=== PATIENT | female | born 1995 | race Caucasian/White ===

== ENCOUNTER 2017-08-15 05:08 | Inpatient (IN) | payer MEDICAID ==
--- NOTE | 2017-08-15 08:21 | PCM.LDHP ---
L&D History of Present Illness - General Date of Service: 08/15/17 Admit Problem/Dx: Patient Status Order with Admit Dx/Problem 08/15/17 05:36 Patient Status [ADT] Routine Admission Diagnosis/Problem Admission Diagnosis/Problem and insulin-dependent diabetes mellitus 08/15/17 08:10 21yo EDC 09/13/2016 making her 35 6/7wks today, complicated GDMA2 on insulin. A+, RI, GBS unkwn. AROM at 0400 clear fluid Source of Information: Patient History Limitations: Reports: No Limitations - History of Present Illness Improves with: Reports: None Worsens with: Reports: None Associated Symptoms: Reports: N - Related Data Allergies/Adverse Reactions: Allergies Allergy/AdvReac Type Severity Reaction Status Date / Time No Known Allergies Allergy Verified 10/23/16 17:57 Home Medications: Home Meds Acetaminophen [Tylenol Extra Strength] 500 mg PO Q4H PRN #1 tab 12/27/13 [Rx] Acetaminophen/oxyCODONE [Percocet 325-5 MG] 1 - 2 tab PO Q4H #30 tablet [Rx] Folic Acid 1 tab PO DAILY 11/03/16 [History] PNV95/Ferrous Fumarate/FA [ Vitamins Tablet] 1 tab PO DAILY 11/03/16 [ History] Past Medical History - Past Health History Medical/Surgical History: Denies Medical/Surgical History HEENT History: Reports: None Cardiovascular History: Reports: None Respiratory History: Reports: None Gastrointestinal History: Reports: GERD Genitourinary History: Reports: None 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: Musculoskeletal History: Reports: None Neurological History: Reports: None Psychiatric History: Reports: None Endocrine/Metabolic History: Reports: Diabetes, Gestational, Obesity/BMI 30+ Hematologic History: Reports: None Immunologic History: Reports: None Oncologic (Cancer) History: Reports: None Dermatologic History: Reports: None - Infectious Disease History Infectious Disease History: Reports: Chicken Pox - Past Surgical History Head Surgeries/Procedures: Reports: None Social & Family History - Family History Family Medical History: Noncontributory - Tobacco Use Smoking Status *Q: Never Smoker Years of Tobacco use: 2 Second Hand Smoke Exposure: No - Alcohol Use Days Per Week of Alcohol Use: 0 - Recreational Drug Use Recreational Drug Use: No H&P Review of Systems - Review of Systems: Review Of Systems: See Below General: Reports: No Symptoms HEENT: Reports: No Symptoms Pulmonary: Reports: No Symptoms Cardiovascular: Reports: No Symptoms Gastrointestinal: Reports: No Symptoms Genitourinary: Reports: No Symptoms Musculoskeletal: Reports: No Symptoms Skin: Reports: No Symptoms Psychiatric: Reports: No Symptoms Neurological: Reports: No Symptoms Hematologic/Lymphatic: Reports: No Symptoms Immunologic: Reports: No Symptoms L&D Exam - Exam Exam: See Below - Vital Signs Weight: 102.512 kg - OB Specific Contraction Intensity: Moderate Movement: Active Heart Tones: Present Heart Rate (FHR) Variability: Moderate (6-25 bmp) Presentation: Vertex (confirmed via bedside handheld u/s) - Castillo Score Castillo Score Cervix Position: Posterior Castillo Score Consistency: Soft Castillo Score Effacement: 51-70% Castillo Score Dilation: 1-2 cm Castillo Score Infant's Station: -3 Castillo Score Total: 5 - Exam General: Alert, Oriented, Cooperative HEENT: Hearing Intact Lungs: Normal Respiratory Effort GI/Abdominal Exam: Soft, Non-Tender, No Organomegaly (gravid) Rectal Exam: Deferred Genitourinary: Normal bimanual exam, Cervical dilitation, Cervical fluid Back Exam: Full Range of Motion Extremities: Normal Range of Motion, Non-Tender, No Pedal Edema, Normal Capillary Refill Skin: Warm, Dry, Intact Neurological: Reflexes Equal Bilateral, Normal Speech, Normal Tone Psychiatric: Alert, Normal Affect, Normal Mood - Patient Data Lab Results Last 24 hrs: Laboratory Results - last 24 hr 08/15/17 Range/Units 05:25 Membrane Rupture POSITIVE - Problem List (1) Supervision of normal IUP (intrauterine ) in multigravida SNOMED Code(s): 190035096, 230496406 ICD Code: Z34.80 - ENCOUNTER FOR SUPRVSN OF NORMAL , UNSP TRIMESTER Status: Acute Priority: High Current Visit: Yes Qualifiers: Trimester: unspecified trimester Qualified Code(s): Z34.90 - Encounter for supervision of normal , unspecified, unspecified trimester (2) Gestational diabetes mellitus (GDM) affecting SNOMED Code(s): 63014291314200 ICD Code: O24.419 - GESTATIONAL DIABETES MELLITUS IN , UNSP CONTROL Status: Acute Priority: High Current Visit: Yes Problem List Initiated/Reviewed/Updated: Yes Orders Last 24hrs: Active Orders 24 hr Category Date Time Status Patient Status [ADT] Routine ADT 08/15/17 05:36 Active Non Stress Test [RC] PER UNIT ROUTINE Care 08/15/17 05:36 Active Up ad [place] [RC] ASDIRECTED Care 08/15/17 05:36 Active Vaginal Exam [RC] Click to Edit Care 08/15/17 05:36 Active Vital Signs [RC] PER UNIT ROUTINE Care 08/15/17 05:36 Active Resuscitation Status Routine Resus Stat 08/15/17 05:36 Ordered Assessment/Plan Comment:: Labor A: 21yo EDC 09/13/2016 making her 35 6/7wks today, complicated GDMA2 on insulin. A+, RI, GBS unkwn. AROM at 0400 clear fluid P: admit to L&D, antibiotics for GBS unkwn, check BG q4h and if over 140 use sliding scale, pitocin per protocol, anticipate . Dr Villagomez updated on pt status
[2017-08-15] MEDS ORDERED: Methylergonovine 0.2 MG/1 ML Amp IM PRN (08:32)
[2017-08-15] MEDS ORDERED: Butorphanol 1 MG/ML SDV IVPUSH PRN (08:32)
[2017-08-15] MEDS ORDERED: Terbutaline 1 MG/ML SDV SUBCUT PRN (08:32)
[2017-08-15] MEDS ORDERED: Misoprostol 200 MCG Tab PO PRN (08:32)
[2017-08-15] MEDS ORDERED: Water For Irrigation,Sterile 1,000 ML Container IRR PRN (08:32)
[2017-08-15] MEDS ORDERED: Sodium Chloride 0.9% 10 ML Syringe FLUSH PRN (08:32)
[2017-08-15] MEDS ORDERED: Sodium Chloride 0.9% 2.5 ML Syringe FLUSH PRN (08:32)
[2017-08-15] MEDS ORDERED: Carboprost Tromethamine 250 MCG/1 ML Amp IM PRN (08:32)
[2017-08-15] MEDS ORDERED: Lidocaine 1% 50 ML MDV INJECT PRN (08:32)
[2017-08-15] MEDS ORDERED: Oxytocin/0.9 % Sodium Chloride 30 UNIT/500 ML BAG IV SCH ×2 (08:45)
[2017-08-15] MEDS ORDERED: Ampicillin 2 GM in Sodium Chloride 0.9% 100 ML IV ONE (09:00)
[2017-08-15] MEDS: Nalbuphine 10 MG/1 ML Vial IVPUSH PRN ×2 (09:01→11:28)
[2017-08-15] MEDS: Lactated Ringers 1,000 ML IV SCH ×3 (09:01→12:25)
[2017-08-15] MEDS ORDERED: Ropivacaine HCl/PF 100 ML ONE (11:46)
[2017-08-15] MEDS ORDERED: fentaNYL 100 MCG/2 ML SDV ONE (11:46)
[2017-08-15] MEDS ORDERED: Ampicillin 1 GM in Sodium Chloride 0.9% 50 ML IV SCH (13:00)
[2017-08-15] MEDS ORDERED: Ibuprofen 400 MG Tab PO PRN (14:31)
[2017-08-15] MEDS ORDERED: Acetaminophen 500 MG Tab PO PRN (14:31)
[2017-08-15] MEDS ORDERED: Benzocaine/Menthol 20%-0.5% Spray 78 GM Cannister TOP PRN (14:31)
[2017-08-15] MEDS ORDERED: Witch Hazel Medicated Pads 40/Jar TOP PRN (14:31)
[2017-08-15] MEDS ORDERED: Lanolin 100% Cream 7 GM Tube TOP PRN (14:31)
[2017-08-15] MEDS ORDERED: Bisacodyl 10 MG Supp RECTAL PRN (14:31)
--- NOTE | 2017-08-15 14:41 | PCM.PREANE ---
Preanesthetic Assessment - Procedure Proposed Procedure: Labor epidural - Anesthesia/Transfusion/Family Hx Anesthesia History: No Prior Anesthesia Family History of Anesthesia Reaction: No Transfusion History: No Prior Transfusion(s) Intubation History: Unknown Additional History: DM with insulin admin q PM; - Review of Systems General: No Symptoms, Other (labor) Pulmonary: No Symptoms Cardiovascular: No Symptoms Gastrointestinal: Other (GERD) Neurological: Other (active labor) - Physical Assessment Height: 5 ft 1 in Weight: 226 lb ASA Class: 3 Mental Status: Alert & Oriented x3 Airway Class: Mallampati = 1 Dentition: Reports: Normal Dentition Thyro-Mental Finger Breadths: 3 Mouth Opening Finger Breadths: 3 ROM/Head Extension: Full Lungs: Clear to Auscultation, Normal Respiratory Effort Cardiovascular: Regular Rate, Regular Rhythm, No Murmurs - Lab Values: Laboratory Last Values WBC 9.82 K/uL (4.0-11.0) 08/15/17 09:13 RBC 4.19 M/uL (4.30-5.90) L 08/15/17 09:13 Hgb 11.5 g/dL (12.0-16.0) L 08/15/17 09:13 Hct 34.3 % (36.0-46.0) L 08/15/17 09:13 MCV 81.9 fL (80.0-98.0) 08/15/17 09:13 MCH 27.4 pg (27.0-32.0) 08/15/17 09:13 MCHC 33.5 g/dL (31.0-37.0) 08/15/17 09:13 RDW Std Deviation 39.8 fl (28.0-62.0) 08/15/17 09:13 RDW Coeff of Robel 13 % (11.0-15.0) 08/15/17 09:13 Plt Count 256 K/uL (150-400) 08/15/17 09:13 MPV 11.70 fL (7.40-12.00) 08/15/17 09:13 Nucleated RBC % 0.0 /100WBC 08/15/17 09:13 Nucleated RBCs # 0 K/uL 08/15/17 09:13 Membrane Rupture POSITIVE 08/15/17 05:25 Blood Type A POSITIVE 08/15/17 09:13 Antibody Screen NEGATIVE 08/15/17 09:13 - Allergies Allergies/Adverse Reactions: Allergies Allergy/AdvReac Type Severity Reaction Status Date / Time No Known Allergies Allergy Verified 10/23/16 17:57 - Blood Blood Available: No Product(s) Available: None - Anesthesia Plan Pre-Op Medication Ordered: Other (nubain at 11:30) - Acknowledgements Anesthesia Type Planned: Epidural Pt an Appropriate Candidate for the Planned Anesthesia: Yes Alternatives and Risks of Anesthesia Discussed w Pt/Guardian: Yes Pt/Guardian Understands and Agrees with Anesthesia Plan: Yes PreAnesthesia Questionnaire - Past Health History Medical/Surgical History: Denies Medical/Surgical History HEENT History: Reports: None Cardiovascular History: Reports: None Respiratory History: Reports: None Gastrointestinal History: Reports: GERD Genitourinary History: Reports: None 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: Musculoskeletal History: Reports: None Neurological History: Reports: None Psychiatric History: Reports: None Endocrine/Metabolic History: Reports: Diabetes, Gestational, Obesity/BMI 30+ Hematologic History: Reports: None Immunologic History: Reports: None Oncologic (Cancer) History: Reports: None Dermatologic History: Reports: None - Infectious Disease History Infectious Disease History: Reports: Chicken Pox - Past Surgical History Head Surgeries/Procedures: Reports: None - SUBSTANCE USE Smoking Status *Q: Never Smoker Second Hand Smoke Exposure: No Days Per Week of Alcohol Use: 0 Recreational Drug Use History: No - HOME MEDS Home Medications: Home Meds Acetaminophen [Tylenol Extra Strength] 500 mg PO Q4H PRN #1 tab 12/27/13 [Rx] Acetaminophen/oxyCODONE [Percocet 325-5 MG] 1 - 2 tab PO Q4H #30 tablet [Rx] Folic Acid 1 tab PO DAILY 11/03/16 [History] PNV95/Ferrous Fumarate/FA [ Vitamins Tablet] 1 tab PO DAILY 11/03/16 [ History] - CURRENT (IN HOUSE) MEDS Current Meds: Current Medications Acetaminophen (Tylenol Extra Strength) 500 mg PO Q4H PRN PRN Reason: Pain Acetaminophen (Tylenol Extra Strength) 1,000 mg PO Q4H PRN PRN Reason: Pain Benzocaine/Menthol (Dermoplast Pain Relief 20%-0.5% [place]) 78 gm TOP ASDIRECTED PRN PRN Reason: Perineal Comfort Measure Bisacodyl (Dulcolax) 10 mg RECTAL .ONCE PRN PRN Reason: Constipation Docusate Sodium (Colace) 100 mg PO BID PRN PRN Reason: Constipation Emollient Ointment (Lansinoh Hpa) 0 gm TOP ASDIRECTED PRN PRN Reason: Sore Nipples Ibuprofen (Motrin) 400 mg PO Q4H PRN PRN Reason: Pain Ibuprofen (Motrin) 800 mg PO Q6H PRN PRN Reason: Pain Oxycodone HCl (Oxycodone) 5 mg PO Q2H PRN PRN Reason: Pain Witch Dilia (Tucks) 1 pad TOP ASDIRECTED PRN PRN Reason: comfort care Discontinued Medications Butorphanol Tartrate (Stadol) 1 mg IVPUSH ASDIRECTED PRN PRN Reason: Pain Carboprost Tromethamine (Hemabate Ds) 250 mcg IM ASDIRECTED PRN PRN Reason: Post Hemorrhage Fentanyl (Sublimaze) Confirm Administered Dose 100 mcg .ROUTE .STK-MED ONE Stop: 08/15/17 11:47 Lactated Ringer's (Ringers, Lactated) 1,000 mls @ 150 mls/hr IV ASDIRECTED [facility] Last Admin: 08/15/17 12:25 Dose: 150 mls/hr Oxytocin/Sodium Chloride (Oxytocin 30 Unit/500 Ml-Ns) 30 unit in 500 mls @ 999 mls/hr IV ASDIRECTED SRAVANTHI Last Admin: 08/15/17 14:28 Dose: 150 mls/hr Oxytocin/Sodium Chloride (Oxytocin 30 Unit/500 Ml-Ns) 30 unit in 500 mls @ 2 mls/hr IV TITRATE SRAVANTHI; 2 MUNITS/MIN PRN Reason: Protocol Last Titration: 08/15/17 10:20 Dose: 8 munits/min, 8 mls/hr Ampicillin Sodium 1 gm/ Sodium (Chloride) 50 mls @ 100 mls/hr IV Q4H SRAVANTHI Ampicillin Sodium 2 gm/ Sodium (Chloride) 100 mls @ 200 mls/hr IV ONETIME ONE Stop: 08/15/17 09:29 Last Admin: 08/15/17 09:30 Dose: 200 mls/hr Ropivacaine (Naropin 0.2%) Confirm Administered Dose 100 mls @ as directed .ROUTE .STK-MED ONE Stop: 12/06/17 11:47 Lidocaine HCl (Xylocaine 1%) 50 ml INJECT .ONCE PRN PRN Reason: Laceration repair Last Admin: 08/15/17 14:09 Dose: 50 ml Methylergonovine Maleate (Methergine) 0.2 mg IM ASDIRECTED PRN PRN Reason: Post Hemorrhage Last Admin: 08/15/17 14:05 Dose: 0.2 mg Misoprostol (Cytotec) 200 mcg PO .ONCE PRN PRN Reason: Post Hemorrhage Nalbuphine HCl (Nubain) 10 mg IVPUSH ASDIRECTED PRN PRN Reason: Pain (severe 7-10) Last Admin: 08/15/17 11:28 Dose: 10 mg Sodium Chloride (Saline Flush) 10 ml FLUSH ASDIRECTED PRN PRN Reason: Keep Vein Open Sodium Chloride (Saline Flush) 2.5 ml FLUSH ASDIRECTED PRN PRN Reason: Keep Vein Open Sterile Water (Sterile Water For Irrigation) 1,000 ml IRR ASDIRECTED PRN PRN Reason: delivery Terbutaline Sulfate (Brethine) 0.25 mg SUBCUT ASDIRECTED PRN PRN Reason: Tacysystole
[2017-08-15] MEDS: Docusate Sodium 100 MG Cap PO PRN (19:34)
[2017-08-15] MEDS: Acetaminophen 500 MG Tab PO PRN (19:34)
[2017-08-15] MEDS: oxyCODONE 5 MG Tab PO PRN (19:35)
[2017-08-16] MEDS: Ibuprofen 800 MG Tab PO PRN ×3 (01:22→17:03)
[2017-08-16] MEDS: oxyCODONE 5 MG Tab PO PRN ×4 (04:44→20:37)
[2017-08-16] MEDS: Acetaminophen 500 MG Tab PO PRN (04:45)
--- NOTE | 2017-08-16 07:37 | PCM.DCSUM1 ---
Discharge Summary - Hospital Course Free Text/Narrative:: Discharge home with son. Follow up in 6 weeks for post or sooner if needed. - Discharge Data Discharge Date: 08/16/17 Discharge Disposition: Home, Self-Care 01 Condition: Good - Discharge Diagnosis/Problem(s) (1) Supervision of normal IUP (intrauterine ) in multigravida SNOMED Code(s): 329173126, [id number] ICD Code: Z34.80 - ENCOUNTER FOR SUPRVSN OF NORMAL , UNSP TRIMESTER Status: Acute Priority: High Current Visit: Yes Qualifiers: Trimester: unspecified trimester Qualified Code(s): Z34.90 - Encounter for supervision of normal , unspecified, unspecified trimester (2) Gestational diabetes mellitus (GDM) affecting SNOMED Code(s): 60062568039687 ICD Code: O24.419 - GESTATIONAL DIABETES MELLITUS IN , UNSP CONTROL Status: Acute Priority: High Current Visit: Yes (3) (spontaneous vaginal delivery) SNOMED Code(s): 36616377 ICD Code: O80 - ENCOUNTER FOR FULL-TERM UNCOMPLICATED DELIVERY Status: Acute Priority: High Current Visit: Yes - Patient Instructions Diet: Usual Diet as Tolerated Activity: As Tolerated, Rest and Relax Today Driving: May Drive Today Showering/Bathing: May Shower Notify Provider of: Fever, Increased Pain, Swelling and Redness, Nausea and/or Vomiting Other/Special Instructions: Discharge home with son. Follow up in 6 weeks for post or sooner if needed. Come to lab for 2 hour fasting glucose test prior to 6 wk visit. - Discharge Plan Home Medications: Home Meds Acetaminophen [Tylenol Extra Strength] 500 mg PO Q4H PRN #1 tab 12/27/13 [Rx] Acetaminophen/oxyCODONE [Percocet 325-5 MG] 1 - 2 tab PO Q4H #30 tablet [Rx] Folic Acid 1 tab PO DAILY 11/03/16 [History] PNV95/Ferrous Fumarate/FA [ Vitamins Tablet] 1 tab PO DAILY 11/03/16 [ History] Referrals: [facility] [Outside] Hayden Villagomez MD [Physician] - 09/26/17 10:45 am - General Info Date of Service: 08/16/17 Admission Dx/Problem (Free Text: Patient Status Order with Admit Dx/Problem 08/15/17 05:36 Patient Status [ADT] Routine Admission Diagnosis/Problem Admission Diagnosis/Problem and insulin-dependent diabetes mellitus 08/15/17 08:10 21yo EDC 09/13/2016 making her 35 6/7wks today, complicated GDMA2 on insulin. A+, RI, GBS unkwn. AROM at 0400 clear fluid Functional Status: Reports: Pain Controlled, Tolerating Diet, Ambulating, Urinating - Review of Systems General: Reports: No Symptoms HEENT: Reports: No Symptoms Pulmonary: Reports: No Symptoms Cardiovascular: Reports: No Symptoms Gastrointestinal: Reports: No Symptoms Genitourinary: Reports: No Symptoms Musculoskeletal: Reports: No Symptoms Skin: Reports: No Symptoms Neurological: Reports: No Symptoms Psychiatric: Reports: No Symptoms - Patient Data Vitals - Most Recent: Last Vital Signs Temp 36.5 C 08/16/17 04:00 Pulse 68 08/16/17 04:00 Resp 17 08/16/17 04:00 BP 99/61 08/16/17 04:00 Pulse Ox 98 08/16/17 04:00 Weight - Most Recent: 102.512 kg Lab Results - Last 24 hrs: Laboratory Results - last 24 hr 08/15/17 08/15/17 08/16/17 Range/Units 09:13 09:13 04:44 WBC 9.82 (4.0-11.0) K/uL RBC 4.19 L (4.30-5.90) M/uL Hgb 11.5 L 10.7 L (12.0-16.0) g/dL Hct 34.3 L 32.1 L (36.0-46.0) % MCV 81.9 (80.0-98.0) fL MCH 27.4 (27.0-32.0) pg MCHC 33.5 (31.0-37.0) g/dL RDW Std Deviation 39.8 (28.0-62.0) fl RDW Coeff of Robel 13 (11.0-15.0) % Plt Count 256 (150-400) K/uL MPV 11.70 (7.40-12.00) fL Nucleated RBC % 0.0 /100WBC Nucleated RBCs # 0 K/uL Blood Type A POSITIVE Antibody Screen NEGATIVE Med Orders - Current: Current Medications Acetaminophen (Tylenol Extra Strength) 500 mg PO Q4H PRN PRN Reason: Pain Last Admin: 08/16/17 04:45 Dose: 500 mg Acetaminophen (Tylenol Extra Strength) 1,000 mg PO Q4H PRN PRN Reason: Pain Benzocaine/Menthol (Dermoplast Pain Relief 20%-0.5% [place]) 78 gm TOP ASDIRECTED PRN PRN Reason: Perineal Comfort Measure Last Admin: 08/15/17 17:00 Dose: 1 spray Bisacodyl (Dulcolax) 10 mg RECTAL .ONCE PRN PRN Reason: Constipation Docusate Sodium (Colace) 100 mg PO BID PRN PRN Reason: Constipation Last Admin: 08/15/17 19:34 Dose: 100 mg Emollient Ointment (Lansinoh Hpa) 0 gm TOP ASDIRECTED PRN PRN Reason: Sore Nipples Ibuprofen (Motrin) 400 mg PO Q4H PRN PRN Reason: Pain Ibuprofen (Motrin) 800 mg PO Q6H PRN PRN Reason: Pain Last Admin: 08/16/17 01:22 Dose: 800 mg Oxycodone HCl (Oxycodone) 5 mg PO Q2H PRN PRN Reason: Pain Last Admin: 08/16/17 04:44 Dose: 5 mg Witch Dilia (Tucks) 1 pad TOP ASDIRECTED PRN PRN Reason: comfort care Last Admin: 08/15/17 17:00 Dose: 1 pad Discontinued Medications Butorphanol Tartrate (Stadol) 1 mg IVPUSH ASDIRECTED PRN PRN Reason: Pain Carboprost Tromethamine (Hemabate Ds) 250 mcg IM ASDIRECTED PRN PRN Reason: Post Hemorrhage Fentanyl (Sublimaze) Confirm Administered Dose 100 mcg .ROUTE .STK-MED ONE Stop: 08/15/17 11:47 Lactated Ringer's (Ringers, Lactated) 1,000 mls @ 150 mls/hr IV ASDIRECTED SRAVANTHI Last Admin: 08/15/17 12:25 Dose: 150 mls/hr Oxytocin/Sodium Chloride (Oxytocin 30 Unit/500 Ml-Ns) 30 unit in 500 mls @ 999 mls/hr IV ASDIRECTED SRAVANTHI Last Admin: 08/15/17 14:28 Dose: 150 mls/hr Oxytocin/Sodium Chloride (Oxytocin 30 Unit/500 Ml-Ns) 30 unit in 500 mls @ 2 mls/hr IV TITRATE SRAVANTHI; 2 MUNITS/MIN PRN Reason: Protocol Last Titration: 08/15/17 10:20 Dose: 8 munits/min, 8 mls/hr Ampicillin Sodium 1 gm/ Sodium (Chloride) 50 mls @ 100 mls/hr IV Q4H SRAVANTHI Ampicillin Sodium 2 gm/ Sodium (Chloride) 100 mls @ 200 mls/hr IV ONETIME ONE Stop: 08/15/17 09:29 Last Admin: 08/15/17 09:30 Dose: 200 mls/hr Ropivacaine (Naropin 0.2%) Confirm Administered Dose 100 mls @ as directed .ROUTE .STK-MED ONE Stop: 08/15/17 11:47 Lidocaine HCl (Xylocaine 1%) 50 ml INJECT .ONCE PRN PRN Reason: Laceration repair Last Admin: 08/15/17 14:09 Dose: 50 ml Methylergonovine Maleate (Methergine) 0.2 mg IM ASDIRECTED PRN PRN Reason: Post Hemorrhage Last Admin: 08/15/17 14:05 Dose: 0.2 mg Misoprostol (Cytotec) 200 mcg PO .ONCE PRN PRN Reason: Post Hemorrhage Nalbuphine HCl (Nubain) 10 mg IVPUSH ASDIRECTED PRN PRN Reason: Pain (severe 7-10) Last Admin: 08/15/17 11:28 Dose: 10 mg Sodium Chloride (Saline Flush) 10 ml FLUSH ASDIRECTED PRN PRN Reason: Keep Vein Open Sodium Chloride (Saline Flush) 2.5 ml FLUSH ASDIRECTED PRN PRN Reason: Keep Vein Open Sterile Water (Sterile Water For Irrigation) 1,000 ml IRR ASDIRECTED PRN PRN Reason: delivery Terbutaline Sulfate (Brethine) 0.25 mg SUBCUT ASDIRECTED PRN PRN Reason: Tacysystole - Exam General: Reports: Alert, Oriented, Cooperative, No Acute Distress Lungs: Reports: Normal Respiratory Effort GI/Abdominal Exam: Soft, Non-Tender (Female) Exam: Vaginal Bleeding Rectal (Female) Exam: Deferred Back Exam: Reports: Full Range of Motion Extremities: Normal Range of Motion, Non-Tender, No Pedal Edema, Normal Capillary Refill Skin: Reports: Warm, Dry, Intact Wound/Incisions: Reports: Healing Well Neurological: Reports: No New Focal Deficit, Normal Speech, Normal Tone Psy/Mental Status: Reports: Alert, Normal Affect, Normal Mood *Q Meaningful Use (DIS) - VTE *Q VTE Criteria *Q: - Stroke *Q Stroke Criteria *Q: - AMI *Q AMI Criteria *Q:
[2017-08-16] MEDS: Docusate Sodium 100 MG Cap PO PRN (08:17)
--- NOTE | 2017-08-16 14:47 | PCM48HPAN ---
Post Anesthesia Note - EVALUATION WITHIN 48HRS OF ANESTHETIC Vital Signs in Normal Range: Yes Patient Participated in Evaluation: Yes Respiratory Function Stable: Yes Airway Patent: Yes Cardiovascular Function Stable: Yes Hydration Status Stable: Yes Pain Control Satisfactory: Yes Nausea and Vomiting Control Satisfactory: Yes Mental Status Recovered: Yes - COMMENTS/OBSERVATIONS Free Text/Narrative:: Catheter removed intact per RN.
--- NOTE | 2017-08-16 16:01 | OR ---
SURGEON: Hayden Villagomez MD DATE OF PROCEDURE: 08/15/2017 DELIVERY NOTE: Ms. Prather is a 21-year-old patient. She is a para 1-0-0-1. She started care late in our clinic. She is an insulin-dependent diabetic and in most of her , her diabetes was out of control. She is 36 weeks. She presented today to Labor and Delivery with gross rupture of the membranes. She was vertex presentation, and the patient after counseling, was admitted and she was started on Pitocin augmentation. She had an epidural anesthesia for labor analgesia. However, I saw the patient with the chief business development officer today early in the morning and in my assessment, the fetus is in excess of 9 pounds, and I was thinking that there may be a possibility of shoulder dystocia on this patient. However, the patient progressed completely to complete and started pushing and when Fatemeh Parekh went to do the delivery, I went to Labor and Delivery to be available just in case there was a shoulder dystocia with the patient. The head was delivered and Fatemeh had difficulty in delivering the shoulders. I joined the delivery team and assessed the finding. I went ahead and did a second-degree episiotomy to make room for the shoulders, and with sweeping anteriorly above the end of the symphysis pubis and gentle pulling on the head, and the patient in exaggerated Jena position, I was able to deliver the fetus and then we clamped the cord and we started resuscitation. The fetus was grasped and cried immediately. heart rate was above 100, and Dr. Whitman, the grass cutter, was called, and by the time I left the delivery room, the fetus was crying vigorously and there does not seem to be any problem. However, my preliminary assessment of the fetus before Dr. Whitman got there, is that there may be a possibility of fracture of the right clavicle, but that is to be assessed later and to be evaluated by the grass cutter. The placenta was delivered spontaneous, complete, and intact. Estimated blood loss was 350 mL. heart rate was category 1 through the entire process of labor. KURTIS / ENE /[id number]
[2017-08-16 21:28] VITALS: BP 108/67
== END 2017-08-16 21:12 | disposition home or self-care (01) | DRG 775 ==
LOC: MW.OBCHECK 05:08 → MW.OB 05:10 → MW.OBCHECK 09:00 → OBSVTOIN 13:55 → MW.OB 17:38
PROVIDERS: ADMIT Obstetrics & Gynecology; ATTEND Obstetrics & Gynecology
PROC: 10E0XZZ Delivery of Products of Conception, External Approach (ICD-10-PCS; principal; 2017-08-15)
PROC: 0KQM0ZZ Repair Perineum Muscle, Open Approach (ICD-10-PCS; 2017-08-15)
PROC: 10E0XZZ Delivery of Products of Conception, External Approach (ICD-10-PCS; 2017-08-15)
PROC: 0W8NXZZ Division of Female Perineum, External Approach (ICD-10-PCS; 2017-08-15)
DX: O24.424 Gestational diabetes mellitus in childbirth, insulin controlled (principal); O42.013 Preterm premature rupture of membranes, onset of labor within 24 hours of rupture, third trimester; O70.1 Second degree perineal laceration during delivery; Z3A.36 36 weeks gestation of pregnancy; Z37.0 Single live birth
CPT/HCPCS: 36415; 51702; 59025; 59409; 84112; 85014; 85018; 85027; 86850; 86900; 86901; A9270-GY; J0290; J2210; J2300; J2590; J7030; J7120

== ENCOUNTER 2018-01-31 12:58 | Emergency (ER) | payer SELFPAY ==
--- NOTE | 2018-01-31 13:45 | EDM.PDOC ---
ED HPI GENERAL MEDICAL PROBLEM - General Stated Complaint: CRAMPING AND SPOTTING WITH 3 MONTHS Time Seen by Provider: 01/31/18 13:05 Source of Information: Reports: Patient History Limitations: Reports: No Limitations - History of Present Illness INITIAL COMMENTS - FREE TEXT/NARRATIVE: HISTORY AND PHYSICAL: History of present illness: Patient is here to the ED with c/o low abdominal cramping. Upon assessment/ examination she is breast feeding. States she saw her primary care provider at 1030 this morning, to confirm . She had a blood draw, confirming she was . States she was concerned that they did "not do an ultrasound or tell me how far along I am". When she went home, she voided and as she wiped, she noted a "spec of blood". She has some abdominal cramping since that time. Denies any current bleeding since her wiping in the bathroom episode. States her last menstrual period was in October 2017. Believes she is 3 months . 4, Para 2, with Ectopic 1. History of gestational diabetes in which she was insulin-dependent Review of systems: As per history of present illness and below otherwise all systems reviewed and negative. Past medical history: As per history of present illness and as reviewed below otherwise noncontributory. Surgical history: As per history of present illness and as reviewed below otherwise noncontributory. Social history: No reported history of drug or alcohol abuse. Family history: As per history of present illness and as reviewed below otherwise noncontributory. Physical exam: General: Well-developed and well-nourished 22-year-old female. Alert and oriented. Nontoxic appearing and in no acute distress. HEENT: Atraumatic, normocephalic, pupils equal and reactive bilaterally, negative for conjunctival pallor or scleral icterus, mucous membranes moist, throat clear, neck supple, nontender, trachea midline. No drooling or trismus noted. No meningeal signs Lungs: Clear to auscultation, breath sounds equal bilaterally, chest nontender. Heart: S1S2, regular rate and rhythm without overt murmur Abdomen: Soft, nondistended, nontender. Negative for masses or hepatosplenomegaly. Negative for costovertebral tenderness. Pelvis: Stable nontender. Genitourinary: Deferred. Rectal: Deferred. Skin: Intact, warm, dry. No lesions or rashes noted. Extremities: Atraumatic, negative for cords or calf pain. Neurovascular unremarkable. Neuro: Awake, alert, oriented. Cranial nerves II through XII unremarkable. Cerebellum unremarkable. Motor and sensory unremarkable throughout. Exam nonfocal. Notes: Patient had a vaginal delivery by Dr Villagomez on 08/15/2017 (she is 5 months post ). Previous labs show blood type of A+ This morning the patient was seen by SRINIVASAN Padilla to confirm . Qualitative HCG was POSITIVE. Patient has an appointment with Dr Trivedi at [facility]. Dr Love, OB client solutions specialist, was notified of this patient. We discussed her care, she recommends getting an OB transvaginal US and repeat quantitative HCG in 3 days. Today's quant HCG was 2262 (puts her around 3-4 weeks). After the OB ultrasound was obtained the patient is asking to be released to home and called with the results as her needs to get to work soon. The ultrasound report has not returned yet. She will stay and wait for the results. OB ultrasound shows a focal area of thickening in the endometrium containing a small cystic space measuring 2 5 mm. Unable to identify a gestational sac. Ectopic cannot be excluded. They do request that a follow-up ultrasound and beta hCG be repeated this information was shared with the patient. Dr Love, OB client solutions specialist, was notified of this patient's results. She states she is comfortable continuing with the repeat quantitative hCG. She does not need the appointment expedited. This was shared with the patient. She denies any further questions or concerns. Will be discharged to home. Diagnostics: CBC, CMP, UA, Quantitative HCG Therapeutics: [] Impression: Threatened in First Trimester Plan: 1. Please have your quantitative HCG re-drawn on 02/03/2018 in outpatient lab 2. Pelvic rest (no sex, tampons, etc...) until you are cleared by your OB doctor. 3. Keep your OB appointment with Dr Trivedi for next week, follow up sooner if needed. Return to the ED as needed as discussed. Definitive disposition and diagnosis as appropriate pending reevaluation and review of above. 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: Musculoskeletal History: Reports: None Neurological History: Reports: None Psychiatric History: Reports: None Endocrine/Metabolic History: Reports: Diabetes, Gestational, Obesity/BMI 30+ Hematologic History: Reports: None Immunologic History: Reports: None Oncologic (Cancer) History: Reports: None Dermatologic History: Reports: None - Infectious Disease History Infectious Disease History: Reports: Chicken Pox - Past Surgical History Head Surgeries/Procedures: Reports: None Social & Family History - Family History Family Medical History: Noncontributory - Caffeine Use Caffeine Use: Reports: Coffee ED ROS GENERAL - Review of Systems Review Of Systems: ROS reveals no pertinent complaints other than HPI. ED EXAM - Physical Exam Exam: See Below (See dictation) Course - Vital Signs Last Recorded V/S: Last Vital Signs Temp 97.8 F 01/31/18 13:22 Pulse 91 01/31/18 13:22 Resp 18 01/31/18 13:22 BP 118/75 01/31/18 13:22 Pulse Ox 95 01/31/18 13:22 - Orders/Labs/Meds Labs: Laboratory Tests 01/31/18 01/31/18 01/31/18 Range/Units 10:20 10:20 13:54 WBC 7.97 (4.0-11.0) K/uL RBC 4.81 (4.30-5.90) M/uL Hgb 12.9 (12.0-16.0) g/dL Hct 38.5 (36.0-46.0) % MCV 80.0 (80.0-98.0) fL MCH 26.8 L (27.0-32.0) pg MCHC 33.5 (31.0-37.0) g/dL RDW Std Deviation 43.6 (28.0-62.0) fl RDW Coeff of Robel 15 (11.0-15.0) % Plt Count 333 (150-400) K/uL MPV 10.40 (7.40-12.00) fL Neut % (Auto) 49.2 (48.0-80.0) % Lymph % (Auto) 42.0 H (16.0-40.0) % Calhoun % (Auto) 8.0 (0.0-15.0) % Eos % (Auto) 0.5 (0.0-7.0) % Baso % (Auto) 0.3 (0.0-1.5) % Neut # (Auto) 3.9 (1.4-5.7) K/uL Lymph # (Auto) 3.4 H (0.6-2.4) K/uL Calhoun # (Auto) 0.6 (0.0-0.8) K/uL Eos # (Auto) 0.0 (0.0-0.7) K/uL Baso # (Auto) 0.0 (0.0-0.1) K/uL Nucleated RBC % 0.0 /100WBC Nucleated RBCs # 0 K/uL Sodium 138 (136-145) mmol/L Potassium 3.9 (3.5-5.1) mmol/L Chloride 105 (98-107) mmol/L Carbon Dioxide 23.9 (21.0-32.0) mmol/L BUN 11 (7.0-18.0) mg/dL Creatinine 0.8 (0.6-1.0) mg/dL Est Cr Clr Drug Dosing 83.94 mL/min Estimated GFR (MDRD) > 60.0 ml/min Glucose 138 H (74-106) mg/dL Calcium 9.1 (8.5-10.1) mg/dL Total Bilirubin 1.5 H (0.2-1.0) mg/dL AST 48 H (15-37) IU/L ALT 133 H (14-63) IU/L Alkaline Phosphatase 131 H (46-116) U/L Total Protein 7.1 (6.4-8.2) g/dL Albumin 3.5 (3.4-5.0) g/dL Globulin 3.6 H (2.0-3.5) g/dL Albumin/Globulin Ratio 1.0 L (1.3-2.8) HCG, Quant 2262.0 mIU/mL Urine Color YELLOW Urine Appearance SLT CLOUDY Urine pH 6.0 (5.0-8.0) Ur Specific Chunky >= 1.030 (1.001-1.035) Urine Protein NEGATIVE (NEGATIVE) mg/dL Urine Glucose (UA) NEGATIVE (NEGATIVE) mg/dL Urine Ketones TRACE H (NEGATIVE) mg/dL Urine Occult Blood NEGATIVE (NEGATIVE) Urine Nitrite NEGATIVE (NEGATIVE) Urine Bilirubin SMALL H (NEGATIVE) Urine Ictotest NEGATIVE Urine Urobilinogen 1.0 (<2.0) EU/dL Ur Leukocyte Esterase NEGATIVE (NEGATIVE) Urine RBC 0-1 (0-2/HPF) Urine WBC 0-2 (0-5/HPF) Ur Epithelial Cells FEW (NONE-FEW) Amorphous Sediment LIGHT (NEGATIVE) Urine Bacteria FEW (NEGATIVE) Urine Mucus LIGHT (NONE-MOD) Departure - Departure Time of Disposition: 14:51 Disposition: Home, Self-Care 01 Clinical Impression: Threatened in first trimester - Discharge Information Referrals: PCP,None [Primary Care Provider] - Additional Instructions: The following information is given to patients seen in the emergency department who are being discharged to home. This information is to outline your options for follow-up care. We provide all patients seen in our emergency department with a follow-up referral. The need for follow-up, as well as the timing and circumstances, are variable depending upon the specifics of your emergency department visit. If you don't have a primary care physician on staff, we will provide you with a referral. We always advise you to contact your personal physician following an emergency department visit to inform them of the circumstance of the visit and for follow-up with them and/or the need for any referrals to a consulting specialist. The emergency department will also refer you to a specialist when appropriate. This referral assures that you have the opportunity for follow-up care with a specialist. All of these measure are taken in an effort to provide you with optimal care, which includes your follow-up. Under all circumstances we always encourage you to contact your private physician who remains a resource for coordinating your care. When calling for follow-up care, please make the office aware that this follow-up is from your recent emergency room visit. If for any reason you are refused follow-up, please contact the [facility] Emergency Department at and asked to speak to the emergency department charge nurse. [facility] - [facility] [address] [place] [id number] [facility] [address] [place] [id number] 1. Please have your quantitative HCG re-drawn on 02/03/2018 in outpatient lab 2. Pelvic rest (no sex, tampons, etc...) until you are cleared by your OB doctor. 3. Keep your OB appointment with Dr Trivedi for next week, follow up sooner if needed. Return to the ED as needed as discussed.
[2018-01-31 14:15] LABS: CHLORIDE,CL 105 mmol/L (98-107); SODIUM,NA 138 mmol/L (136-145)
--- NOTE | 2018-01-31 16:13 | US ---
EXAMINATION: Transvaginal pelvic ultrasound HISTORY: Cramping COMPARISON: None TECHNIQUE: Grayscale, color Doppler, and spectral Doppler imaging obtained. FINDINGS: The endometrial stripe is thickened and irregular with fluid within the endometrial stripe. There is eccentric 1.3 cm filling defect within the endometrium with a concentric tiny cystic space measuring 5 mm. Both the left and right ovaries are normal in size, contour, and echogenicity and demonstrate normal color and spectral Doppler flow. Dominant follicle within the right ovary. No significant free pelvic fluid. IMPRESSION: 1. Focal area of thickened endometrium containing small cystic spaces measuring up to 5 mm. A definit bri gestational sac is not identified. An ectopic cannot be excluded. Follow-up ultrasound and beta hCG may be beneficial. 2. There is fluid within the endometrial stripe.
[2018-01-31 16:40] VITALS: BP 112/70
== END 2018-01-31 16:42 | disposition home or self-care (01) ==
LOC: MW.ED 12:58
DX: O20.0 Threatened abortion (principal); E66.9 Obesity, unspecified
CPT/HCPCS: 36415; 76817; 76817-26; 80053; 81001; 84702; 85025; 99284-25

== ENCOUNTER 2018-06-16 07:29 | Emergency (ER) | payer MEDICAID ==
[2018-06-16 07:47] VITALS: BP 109/71
--- NOTE | 2018-06-16 07:57 | EDM.PDOC ---
ED HPI GENERAL MEDICAL PROBLEM - General Chief Complaint: ENT Problem Stated Complaint: FLU-LIKE SYMPTOMS Time Seen by Provider: 06/16/18 07:40 Source of Information: Reports: Patient History Limitations: Reports: No Limitations - History of Present Illness INITIAL COMMENTS - FREE TEXT/NARRATIVE: History of present illness: []Patient is 23 weeks OB and has had 4 days of fevers, congestion, sore throat and body aches. Last night she developed ear pain. Has had a minimal amount of nonbloody diarrhea and nausea. She denies any vomiting. His had the same symptoms prior to patient's symptoms, he is now asymptomatic. Patient states she feels the baby moving and denies any abdominal pain. Review of systems: As per history of present illness and below otherwise all systems reviewed and negative. Past medical history: As per history of present illness and as reviewed below otherwise noncontributory. Surgical history: As per history of present illness and as reviewed below otherwise noncontributory. Social history: No reported history of drug or alcohol abuse. Family history: As per history of present illness and as reviewed below otherwise noncontributory. Physical exam: General: Well developed, well nourished in NAD HEENT: Atraumatic, normocephalic, pupils reactive, negative for conjunctival pallor or scleral icterus, mucous membranes moist, throat clear no erythema or exudate , neck supple, nontender, trachea midline. TMs clear, positives left anterior cervical adenopathy Lungs: Clear to auscultation, breath sounds equal bilaterally, chest nontender. Heart: S1S2, regular, negative for clicks, rubs, or JVD. Abdomen: Soft, nondistended, nontender. Negative for masses or hepatosplenomegaly. Negative for costovertebral tenderness. Pelvis: Stable nontender. Genitourinary: Deferred. Rectal: Deferred. Extremities: Atraumatic, negative for cords or calf pain. Neurovascular unremarkable. Neuro: Awake, alert, oriented. Cranial nerves II through XII unremarkable. Cerebellum unremarkable. Motor and sensory unremarkable throughout. Exam nonfocal. Skin:warm and dry Diagnostics: Influenza negative, heart tones 150s Therapeutics: None ED Course: Unremarkable Impression: Viral syndrome Prescriptions: None Plan: Tylenol, rest, increase fluids follow up with OB return if symptoms worsen or change. Definitive disposition and diagnosis as appropriate pending reevaluation and review of above. Bilateral Ear Pain Score (Numeric/FACES): 4 - Related Data Allergies Allergy/AdvReac Type Severity Reaction Status Date / Time No Known Allergies Allergy Verified 01/31/18 13:26 Home Meds: Home Meds Insulin Aspart [Novolog] 100 unit SQ WITHMEALSANDBED 06/16/18 [History] Insulin Detemir [Levemir Flextouch] 15 unit SQ BEDTIME 06/16/18 [History] Past Medical History - Past Health History Medical/Surgical History: Denies Medical/Surgical History HEENT History: Reports: None Cardiovascular History: Reports: None Respiratory History: Reports: None Gastrointestinal History: Reports: GERD Genitourinary History: Reports: None 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: Musculoskeletal History: Reports: None Neurological History: Reports: None Psychiatric History: Reports: None Endocrine/Metabolic History: Reports: Diabetes, Gestational, Obesity/BMI 30+ Hematologic History: Reports: None Immunologic History: Reports: None Oncologic (Cancer) History: Reports: None Dermatologic History: Reports: None - Infectious Disease History Infectious Disease History: Reports: Chicken Pox - Past Surgical History Head Surgeries/Procedures: Reports: None Social & Family History - Family History Family Medical History: Noncontributory - Tobacco Use Smoking Status *Q: Never Smoker Second Hand Smoke Exposure: No - Caffeine Use Caffeine Use: Reports: None - Recreational Drug Use Recreational Drug Use: No ED ROS GENERAL - Review of Systems Review Of Systems: ROS reveals no pertinent complaints other than HPI. ED EXAM, GENERAL - Physical Exam Exam: See Below (See history of present illness) Course - Vital Signs Last Recorded V/S: Last Vital Signs Temp 97.0 F 06/16/18 07:40 Pulse 91 06/16/18 07:40 Resp 15 06/16/18 07:40 BP 109/71 06/16/18 07:40 Pulse Ox 98 06/16/18 07:40 Departure - Departure Time of Disposition: 08:40 Disposition: Home, Self-Care 01 Condition: Good Clinical Impression: Viral syndrome - Discharge Information *PRESCRIPTION DRUG MONITORING PROGRAM REVIEWED*: No *COPY OF PRESCRIPTION DRUG MONITORING REPORT IN PATIENT JAY: No Referrals: PCP,None [Primary Care Provider] - Forms: ED Department Discharge, ED Department Discharge Additional Instructions: The following information is given to patients seen in the emergency department who are being discharged to home. This information is to outline your options for follow-up care. We provide all patients seen in our emergency department with a follow-up referral. The need for follow-up, as well as the timing and circumstances, are variable depending upon the specifics of your emergency department visit. If you don't have a primary care physician on staff, we will provide you with a referral. We always advise you to contact your personal physician following an emergency department visit to inform them of the circumstance of the visit and for follow-up with them and/or the need for any referrals to a consulting specialist. The emergency department will also refer you to a specialist when appropriate. This referral assures that you have the opportunity for follow-up care with a specialist. All of these measure are taken in an effort to provide you with optimal care, which includes your follow-up. Under all circumstances we always encourage you to contact your private physician who remains a resource for coordinating your care. When calling for follow-up care, please make the office aware that this follow-up is from your recent emergency room visit. If for any reason you are refused follow-up, please contact the [facility] Emergency Department at and asked to speak to the emergency department charge nurse. [facility] Primary Care [address] [place] [id number]
[2018-06-17] MEDS ORDERED: Midazolam 1 MG/ML 2 ML SDV ONE (06:58)
[2018-06-17] MEDS ORDERED: Propofol 200 MG/20 ML SDV ONE (06:58)
[2018-06-17] MEDS ORDERED: Lidocaine 2% 5 ML SDV ONE (06:58)
[2018-06-17] MEDS ORDERED: Rocuronium 10 MG/ML 10 ML Syringe ONE (06:59)
[2018-06-17] MEDS ORDERED: fentaNYL 250 MCG/5 ML SDV ONE (06:59)
== END 2018-06-16 08:49 | disposition home or self-care (01) ==
LOC: MW.ED 07:29
DX: O98.512 Other viral diseases complicating pregnancy, second trimester (principal); B34.9 Viral infection, unspecified; O99.212 Obesity complicating pregnancy, second trimester; Z79.4 Long term (current) use of insulin; Z3A.23 23 weeks gestation of pregnancy
CPT/HCPCS: 87804; 99282; 99283

== ENCOUNTER 2020-10-07 13:11 | Emergency (ER) | payer SELFPAY ==
--- NOTE | 2020-10-07 13:22 | EDM.PDOC ---
ED HPI GENERAL MEDICAL PROBLEM - General Chief Complaint: Headache Stated Complaint: PERSISTENT HEADACHE Time Seen by Provider: 10/07/20 13:12 Source of Information: Reports: Patient History Limitations: Reports: No Limitations - History of Present Illness INITIAL COMMENTS - FREE TEXT/NARRATIVE: HISTORY AND PHYSICAL: History of present illness: Patient is a 25-year-old female who presents to the emergency room with complaints of a migraine headache. She describes the pain as an 8/10 dull pressure throughout with light sensitivity, noise sensitivity and nausea. She has been taking Tylenol [id number] without much relief. Patient denies any fever, chills, neck stiffness/rigidity, change in vision, syncope or near syncope. Denies any chest pain, back pain, shortness of breath or cough. Denies any abdominal pain, vomiting, diarrhea, constipation or dysuria. Has not noted any blood in urine or stool. Concern for , took a home test a few days ago which was negative. Patient has been eating and drinking appropriately. Review of systems: As per history of present illness and below otherwise all systems reviewed and negative. Past medical history: As per history of present illness and as reviewed below otherwise noncontributory. Surgical history: As per history of present illness and as reviewed below otherwise noncontributory. Social history: See social history for further information Family history: As per history of present illness and as reviewed below otherwise noncontributory. Physical exam: General: Well developed and well nourished. Alert and orientated x 3. Nontoxic in appearance and in no acute distress. Vital signs are stable and have been reviewed by me. Nursing notes were reviewed. HEENT: Atraumatic, normocephalic, pupils equal and reactive bilaterally, negative for conjunctival pallor or scleral icterus, mucous membranes moist, TMs normal bilaterally, throat clear, neck supple, nontender, trachea midline. No drooling or trismus noted. No meningeal signs. No hot potato voice noted. Lungs: Clear to auscultation bilaterally. No wheezes, rales, or rhonchi. Chest nontender. Normal work of breathing, no accessory muscles used. Heart: S1S2, regular rate and rhythm without overt murmur, gallops, or rubs. No JVD. No peripheral edema Abdomen: Soft, nondistended, nontender. Normoactive bowel sounds. Negative for masses or costovertebral tenderness. Pelvis: Stable nontender. Genitourinary/Rectal: Deferred. Skin: Intact, warm, dry. No lesions or rashes noted. Hematologic: No petechiae or purpra. Mucosa appropriate color and normal nail bed color and refill. Extremities: Atraumatic, moves all extremities per self without difficulty or deficits, negative for cords or calf pain. Neurovascular unremarkable. Neuro: Awake, alert, oriented. Cranial nerves II through XII unremarkable. Cerebellum unremarkable. Motor and sensory unremarkable throughout. Exam nonfocal. Psychiatric: Mood and affect are appropriate. Normal thought process. Answering questions appropriately. Notes: *This patient was seen and evaluated during the 2019 SARS-CoV-2 novel coronavirus pandemic period. Community viral transmission is ongoing at time of this encounter and the emergency department is operating under pandemic response procedures. I have talked with the patient about today's findings, in addition to providing specific details for plan of care. Reassessment at the time of disposition demonstrates that the patient is in no acute distress. The patient is stable for discharge, counseling was provided and we discussed in great detail signs and symptoms that would prompt them to return to the Emergency Department. Medication, follow up and supportive care measures were reviewed and discussed. Voices understanding and is agreeable to plan of care. Denies any further questions or concerns at this time. Diagnostics: Bedside glucos [employer]rapeutics: IV fluids, Zofran, Toradol, Reglan, Benadryl Prescription: None Impression: Migraine Headache Plan: 1. The medications you received today can cause drowsiness, so do not drive the rest of the day. Please rest in a dark and quiet room. 2. You can alternate Tylenol and ibuprofen as needed for pain and fever management. 3. We encourage you to follow up with your primary care provider and/or recommended specialist in the next few days for re-evaluation and further care/management. 4. If your symptoms should worsen, new symptoms develop or any of the signs and symptoms we discussed should arise please return to the emergency room or call 911 (if needed). Definitive disposition and diagnosis as appropriate pending reevaluation and review of above. headache Pain Score (Numeric/FACES): 8 - Related Data Allergies Allergy/AdvReac Type Severity Reaction Status Date / Time No Known Allergies Allergy Verified 10/07/20 13:33 Home Meds: Home Meds Insulin Aspart [Novolog] 100 unit SQ WITHMEALSANDBED 06/16/18 [History] Insulin Glargine,Hum.Rec.Anlog [Basaglar Kwikpen U-100] 22 units SUBCUT DAILY 07/25/18 [History] Hydrocodone/Acetaminophen [Tryon 5-325 Tablet] 1 each PO Q6HR #20 tablet 08/14/18 [Rx] Past Medical History - Past Health History Medical/Surgical History: Denies Medical/Surgical History HEENT History: Reports: None Cardiovascular History: Reports: None Respiratory History: Reports: None Gastrointestinal History: Reports: GERD Genitourinary History: Reports: None 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 , Musculoskeletal History: Reports: None Neurological History: Reports: None Psychiatric History: Reports: None Endocrine/Metabolic History: Reports: Diabetes, Gestational, Obesity/BMI 30+ Hematologic History: Reports: None Immunologic History: Reports: None Oncologic (Cancer) History: Reports: None Dermatologic History: Reports: None - Infectious Disease History Infectious Disease History: Reports: Chicken Pox - Past Surgical History Head Surgeries/Procedures: Reports: None HEENT Surgical History: Reports: None Cardiovascular Surgical History: Reports: None Respiratory Surgical History: Reports: None Female Surgical History: Reports: None Endocrine Surgical History: Reports: None Neurological Surgical History: Reports: None Musculoskeletal Surgical History: Reports: None Oncologic Surgical History: Reports: None Dermatological Surgical History: Reports: None Social & Family History - Family History Family Medical History: No Pertinent Family History HEENT: Reports: None Cardiac: Reports: None Respiratory: Reports: None GI: Reports: None : Reports: None OBGYN: Reports: None Musculoskeletal: Reports: None Neurological: Reports: None Psychiatric: Reports: None Endocrine/Metabolic: Reports: Diabetes, type II Hematologic: Reports: None Immunologic: Reports: None Dermatologic: Reports: None Oncologic: Reports: None - Caffeine Use Caffeine Use: Reports: Tea Caffeine Use Comment: Iced Tea, twice a week ED ROS GENERAL - Review of Systems Review Of Systems: Comprehensive ROS is negative, except as noted in HPI. - Physical Exam Exam: See Below (See dictation) Course - Vital Signs Last Recorded V/S: Last Vital Signs Temp 97.2 F 10/07/20 14:46 Pulse 60 10/07/20 14:46 Resp 16 10/07/20 14:46 BP 111/64 10/07/20 14:46 Pulse Ox 95 10/07/20 14:46 - Orders/Labs/Meds Labs: Laboratory Tests 10/07/20 Range/Units 13:42 POC Glucose 132 H (60-110) mg/dL Meds: Medications Discontinued Medications Generic Name Dose Route Start Last Admin Trade Name Sherron PRN Reason Stop Dose Admin Acetaminophen/Butalbital/Caffeine 1 tab 10/07/20 14:18 10/07/20 14:22 Fioricet 325-50-40 Mg PO 10/07/20 14:19 1 tab ONETIME ONE Administration Diphenhydramine HCl 50 mg 10/07/20 13:33 10/07/20 13:43 Benadryl IVPUSH 10/07/20 13:34 50 mg ONETIME ONE Administration Sodium Chloride 1,000 mls @ 999 mls/hr 10/07/20 13:32 10/07/20 13:41 Normal Saline IV 10/07/20 14:32 999 mls/hr STAT ONE Administration Ketorolac Tromethamine 30 mg 10/07/20 13:32 10/07/20 13:43 Toradol IVPUSH 10/07/20 13:33 30 mg ONETIME ONE Administration Metoclopramide HCl 5 mg 10/07/20 13:33 10/07/20 13:54 Reglan IVPUSH 10/07/20 13:34 5 mg ONETIME ONE Administration Ondansetron HCl 4 mg 10/07/20 13:32 10/07/20 13:43 Zofran IVPUSH 10/07/20 13:33 4 mg ONETIME ONE Administration Departure - Departure Time of Disposition: 16:18 Disposition: Home, Self-Care 01 Clinical Impression: Migraine - Discharge Information Instructions: Migraine Headache, [id number] Referrals: Mita Miranda CNM [Primary Care Provider] - Forms: ED Department Discharge Additional Instructions: The following information is given to patients seen in the emergency department who are being discharged to home. This information is to outline your options for follow-up care. We provide all patients seen in our emergency department with a follow-up referral. The need for follow-up, as well as the timing and circumstances, are variable depending upon the specifics of your emergency department visit. If you don't have a primary care physician on staff, we will provide you with a referral. We always advise you to contact your personal physician following an emergency department visit to inform them of the circumstance of the visit and for follow-up with them and/or the need for any referrals to a consulting specialist. The emergency department will also refer you to a specialist when appropriate. This referral assures that you have the opportunity for follow-up care with a specialist. All of these measure are taken in an effort to provide you with optimal care, which includes your follow-up. Under all circumstances we always encourage you to contact your private physician who remains a resource for coordinating your care. When calling for follow-up care, please make the office aware that this follow-up is from your recent emergency room visit. If for any reason you are refused follow-up, please contact the [facility] Emergency Department at and asked to speak to the emergency department charge nurse. [facility] [address] [place] [id number] [address] Thank you for choosing the [facility] emergency department in [place] for your medical needs today. It was a pleasure caring for you. Today you were seen in the emergency department for headache/migraine. 1. The medications you received today can cause drowsiness, so do not drive the rest of the day. Please rest in a dark and quiet room. 2. You can alternate Tylenol and ibuprofen as needed for pain and fever management. 3. We encourage you to follow up with your primary care provider and/or recommended specialist in the next few days for re-evaluation and further care/management. 4. If your symptoms should worsen, new symptoms develop or any of the signs and symptoms we discussed should arise please return to the emergency room or call 911 (if needed). Sepsis Event Note (ED) - Focused Exam Vital Signs: Vital Signs Temp Pulse Resp BP Pulse Ox 10/07/20 14:46 97.2 F 60 16 111/64 95 10/07/20 13:29 98.2 F 61 16 108/75 97
[2020-10-07] MEDS ORDERED: Ketorolac 30 MG/ML SDV IVPUSH ONE (13:32)
[2020-10-07] MEDS ORDERED: Sodium Chloride 0.9% 1,000 ML IV ONE (13:32)
[2020-10-07] MEDS ORDERED: Ondansetron 4 MG/2 ML SDV IVPUSH ONE (13:32)
[2020-10-07] MEDS ORDERED: Metoclopramide 10 MG/2 ML SDV IVPUSH ONE (13:33)
[2020-10-07] MEDS ORDERED: diphenhydrAMINE 50 MG/ML SDV IVPUSH ONE (13:33)
[2020-10-07] MEDS ORDERED: Acetaminophen/Butalbital/Caffeine 325-50-40 MG Tab PO ONE (14:18)
[2020-10-07 14:46] VITALS: BP 111/64; PULSE 60
== END 2020-10-07 14:46 | disposition home or self-care (01) ==
LOC: MW.ED 13:11
DX: G43.909 Migraine, unspecified, not intractable, without status migrainosus (principal); E66.9 Obesity, unspecified; Z68.35 Body mass index [BMI] 35.0-35.9, adult
CPT/HCPCS: 82962; 96374; 96375; 99283; A9270; J1200; J1885; J2405; J2765; J7030